=== PATIENT | female | born 1965 | race Caucasian/White ===

== ENCOUNTER 2016-08-30 15:52 | Outpatient (CLI) | payer BC ==
[~2016-08-30 15:52] MED LIST: ALEVE220 MG PO; ESTRADIOL1 MG PO; FISH OIL1200 MG PO; LEVOTHYROXINE50 MCG PO; MULTIPLE VITAMIN PO; SUPER B-COMPLEX PO; VICODIN EQUIVAL1 TAB PO; VITAMIN C500 M1 PO; VITAMIN D1000 UNIT PO; ZYRTEC ALLERGY10 MG PO
== END 2016-08-30 23:00 ==
LOC: LAB SRH 15:52
DX: Z00.00 Encounter for general adult medical examination without abnormal findings (principal); R53.83 Other fatigue; E03.9 Hypothyroidism, unspecified
CPT/HCPCS: 90074; 90100; 91282; 91286; 92690; 93140; 95059

== ENCOUNTER 2016-10-15 14:44 | Outpatient (CLI) | payer BC | END 2016-10-15 23:00 | disposition home or self-care (01) | LOC: LAB SRH 14:44 | DX: E03.9 Hypothyroidism, unspecified (principal) | CPT/HCPCS: 90074; 93140 ==